=== PATIENT | female | born 1955 | race Caucasian/White ===

== ENCOUNTER → 2019-09-01 | Outpatient (CLI) | payer OTHER ==
[~2019-09-01] MED LIST: ALPR.5 PO; ATOR20 PO; Ativan1 MG SL; BACL10 PO; BUPR150ER PO; CEPH500 PO; CODACE30 PO; CYCL10 PO; IBUP600 PO; LOPE2C PO; LOSA25 PO; LOSA50 PO; LOSARTAN POTAS100 MG PO; NAPR500 PO; NITR.4SL SL; PROM25 PO; SULI150 PO; Zofran Odt8 MG SL; Zofran8 MG PO
[2019-09-01 19:22] LABS: BASOPHILS PERCENT AUTO 1 % (0-2); EOSINOPHILS ABSOLUTE AUTO 0.05 K/mm3 (0.00-0.68); EOSINOPHILS PERCENT AUTO 1 % (0-6); Hematocrit 45.8 % (33.0-51.0); Hemoglobin 15.2 g/dL (11.5-16.0); IMMATURE GRAN ABSOLUTE AUTO 0.03 K/mm3 (0.00-0.10); IMMATURE GRAN PERCENT AUTO 0 % (0-1); LYMPHOCYTES ABSOLUTE AUTO 2.52 K/mm3 (0.84-5.20); LYMPHOCYTES PERCENT AUTO 29 % (21-46); MONOCYTES ABSOLUTE AUTO 0.61 K/mm3 (0.16-1.47); MONOCYTES PERCENT AUTO 7 % (4-13); Mean Corpuscular HGB 30.4 pg (26.0-34.0); Mean Corpuscular HGB Conc 33.2 g/dL (31.5-36.5); Mean Corpuscular Volume 92 fL (80-100); Mean Platelet Volume 11.3 fL (9.1-12.4); NEUTROPHILS ABSOLUTE AUTO 5.48 K/mm3 (1.96-9.15); NEUTROPHILS PERCENT AUTO 62 % (41-73); Platelet Count 275 K/mm3 (150-400); RDW Coefficient Variation 11.6 % (11.7-14.2); RDW Standard Deviation 39.3 fL (35.1-46.3); White Blood Cell Count 8.79 K/mm3 (4.00-11.30)
[2019-09-01 20:00] LABS: Alanine Aminotransfer (ALT/SGP 22 U/L (12-78); Albumin, Blood 3.7 g/dL (3.4-5.0); Alk Phos 109 U/L (50-136); Anion Gap 5 mmol/L (6-16); Aspartate Aminotrans (AST/SGOT 16 U/L (12-37); Bilirubin, Total 0.2 mg/dL (0.1-1.0); Blood Urea Nitrogen 11 mg/dL (8-24); Bun/Creatinine Ratio 16.4 (12.0-20.0); CHOL/HDL RATIO 6.9; CO2, Blood 26 mmol/L (21-32); Calcium, Blood 9.2 mg/dL (8.5-10.1); Chloride, Blood 104 mmol/L (98-108); Cholesterol 262 mg/dL (50-200); Creatinine, Blood 0.67 mg/dL (0.40-1.00); Globulin, Blood 3.7 g/dL (2.2-4.0); Glomerular Filtration Rate >60 (60-); Glucose, Blood 104 mg/dL (70-99); HDL Cholesterol 38 mg/dL (>39); LDL/HDL RATIO 4.1; Low Density Lipoprotein Chol 154 mg/dL (0-110); Potassium, Blood 3.8 mmol/L (3.5-5.5); Sodium, Blood 135 mmol/L (136-145); Total Protein, Blood 7.4 g/dL (6.4-8.2); Triglycerides 348 mg/dL (30-160); Very Low Density Lipoprot Chol 69 mg/dL (6-32)
== END | disposition home or self-care (01) ==
LOC: LAB 16:54 → LAB SHORT 16:54 → LAB FUT 07-13 11:05 → EDSTATUS 07-13 11:05
PROVIDERS: Internal Medicine
DX: E78.2 Mixed hyperlipidemia (principal); I10 Essential (primary) hypertension
CPT/HCPCS: 80053; 80061; 84443; 85025

== ENCOUNTER 2020-07-11 09:44 | Emergency (ER) | payer OTHER ==
[~2020-07-11] VITALS: Ht 152.4 cm; Wt 60.3 kg
[2020-07-11] MEDS ORDERED: ATOR20 PO (10:02)
[2020-07-11 10:35] LABS: BASOPHILS ABSOLUTE AUTO 0.07 K/mm3 (0.00-0.23); BASOPHILS PERCENT AUTO 1 % (0-2); EOSINOPHILS ABSOLUTE AUTO 0.05 K/mm3 (0.00-0.68); EOSINOPHILS PERCENT AUTO 1 % (0-6); Hematocrit 45.4 % (33.0-51.0); Hemoglobin 15.5 g/dL (11.5-16.0); IMMATURE GRAN ABSOLUTE AUTO 0.03 K/mm3 (0.00-0.10); IMMATURE GRAN PERCENT AUTO 0 % (0-1); LYMPHOCYTES ABSOLUTE AUTO 1.41 K/mm3 (0.84-5.20); LYMPHOCYTES PERCENT AUTO 16 % (21-46); MONOCYTES ABSOLUTE AUTO 0.36 K/mm3 (0.16-1.47); MONOCYTES PERCENT AUTO 4 % (4-13); Mean Corpuscular HGB 31.1 pg (26.0-34.0); Mean Corpuscular HGB Conc 34.1 g/dL (31.5-36.5); Mean Corpuscular Volume 91 fL (80-100); NEUTROPHILS ABSOLUTE AUTO 6.87 K/mm3 (1.96-9.15); NEUTROPHILS PERCENT AUTO 78 % (41-73); Platelet Count 325 K/mm3 (150-400); RDW Coefficient Variation 11.7 % (11.7-14.2); RDW Standard Deviation 39.5 fL (35.1-46.3); Red Blood Cell Count 4.98 M/mm3 (3.80-5.20); White Blood Cell Count 8.79 K/mm3 (4.00-11.30)
[2020-07-11 10:48] LABS: Alanine Aminotransfer (ALT/SGP 20 U/L (12-78); Albumin, Blood 3.7 g/dL (3.4-5.0); Alk Phos 108 U/L (50-136); Anion Gap 9 mmol/L (6-16); Aspartate Aminotrans (AST/SGOT 14 U/L (12-37); Bilirubin, Total 0.3 mg/dL (0.1-1.0); Blood Urea Nitrogen 14 mg/dL (8-24); Bun/Creatinine Ratio 21.8 (12.0-20.0); CO2, Blood 24 mmol/L (21-32); Calcium, Blood 8.5 mg/dL (8.5-10.1); Chloride, Blood 109 mmol/L (98-108); Creatinine, Blood 0.64 mg/dL (0.40-1.00); Globulin, Blood 3.8 g/dL (2.2-4.0); Glomerular Filtration Rate >60 (60-); Glucose, Blood 100 mg/dL (70-99); Potassium, Blood 4.1 mmol/L (3.5-5.5); Sodium, Blood 142 mmol/L (136-145); Total Protein, Blood 7.5 g/dL (6.4-8.2)
[2020-07-11 11:35] LABS: Influenza A, PCR NEGATIVE (NEGATIVE); Influenza B, PCR NEGATIVE (NEGATIVE); Resp Syncytial Virus, PCR NEGATIVE (NEGATIVE); SARS-Cov-2 (COVID-19) PCR, MMC NEGATIVE (NEGATIVE)
[2020-07-11] MEDS ORDERED: PROM25 PO (17:59)
[2020-07-11] MEDS ORDERED: Bentyl20 MG PO (18:17)
== END 2020-07-11 11:20 | disposition left against medical advice (07) ==
LOC: ER 09:44
PROVIDERS: Emergency Medicine
DX: R10.9 Unspecified abdominal pain (principal); R11.2 Nausea with vomiting, unspecified; Z20.822 Contact with and (suspected) exposure to COVID-19
CPT/HCPCS: 0241U; 80053; 83690; 85025; 99284; J7120

== ENCOUNTER 2020-07-11 13:15 | Emergency (ER) | payer OTHER ==
[~2020-07-11] VITALS: Ht 152.4 cm; Wt 60.3 kg
[2020-07-11 14:49] LABS: Source, Urine Clean Catch
[2020-07-11 14:54] LABS: Appearance, Urine Clear (Clear); Bilirubin, Urine Neg (Neg); Blood, Urine 1+ (Neg); Color, Urine Yellow (P-Yellow); Glucose Qualitative, Urine Neg (Neg); Ketones, Urine Neg (Neg); Leukocyte Esterase, Urine Neg (Neg); Nitrite, Urine Neg (Neg); Protein, Urine Neg (Neg); Specific Gravity, Urine 1.015 (1.003-1.022); Urobilinogen, Urine NORM (Normal)
[2020-07-11 14:56] LABS: BASOPHILS ABSOLUTE AUTO 0.05 K/mm3 (0.00-0.23); BASOPHILS PERCENT AUTO 1 % (0-2); EOSINOPHILS ABSOLUTE AUTO 0.01 K/mm3 (0.00-0.68); EOSINOPHILS PERCENT AUTO 0 % (0-6); Hematocrit 45.6 % (33.0-51.0); IMMATURE GRAN ABSOLUTE AUTO 0.06 K/mm3 (0.00-0.10); IMMATURE GRAN PERCENT AUTO 1 % (0-1); LYMPHOCYTES ABSOLUTE AUTO 1.48 K/mm3 (0.84-5.20); LYMPHOCYTES PERCENT AUTO 14 % (21-46); MONOCYTES ABSOLUTE AUTO 0.32 K/mm3 (0.16-1.47); MONOCYTES PERCENT AUTO 3 % (4-13); Mean Corpuscular HGB 31.1 pg (26.0-34.0); Mean Corpuscular HGB Conc 35.1 g/dL (31.5-36.5); Mean Corpuscular Volume 89 fL (80-100); NEUTROPHILS PERCENT AUTO 82 % (41-73); Platelet Count 338 K/mm3 (150-400); RDW Coefficient Variation 11.7 % (11.7-14.2); Red Blood Cell Count 5.15 M/mm3 (3.80-5.20); White Blood Cell Count 10.92 K/mm3 (4.00-11.30)
[2020-07-11 15:07] LABS: Red Blood Cells, Urine 0-2 /hpf (0-2); White Blood Cells, Urine 0-2 /hpf (0-5)
[2020-07-11 15:08] LABS: Bacteria Few /hpf; Squamous Epithelial Cells Rare /hpf (Few)
[2020-07-11 15:15] LABS: Troponin I <0.015 ng/mL (0.000-0.040)
[2020-07-11 15:16] LABS: Alanine Aminotransfer (ALT/SGP 20 U/L (12-78); Albumin, Blood 3.9 g/dL (3.4-5.0); Alk Phos 111 U/L (50-136); Anion Gap 9 mmol/L (6-16); Aspartate Aminotrans (AST/SGOT 15 U/L (12-37); Bilirubin, Total 0.4 mg/dL (0.1-1.0); Blood Urea Nitrogen 11 mg/dL (8-24); Bun/Creatinine Ratio 17.6 (12.0-20.0); CO2, Blood 25 mmol/L (21-32); Calcium, Blood 9.1 mg/dL (8.5-10.1); Chloride, Blood 109 mmol/L (98-108); Creatinine, Blood 0.63 mg/dL (0.40-1.00); Globulin, Blood 4.1 g/dL (2.2-4.0); Glomerular Filtration Rate >60 (60-); Glucose, Blood 111 mg/dL (70-99); Potassium, Blood 3.8 mmol/L (3.5-5.5); Sodium, Blood 143 mmol/L (136-145)
[2020-07-11] MEDS ORDERED: PROM25 PO (17:59)
[2020-07-11] MEDS ORDERED: Bentyl20 MG PO (18:17)
== END 2020-07-11 19:00 | disposition home or self-care (01) ==
LOC: ER 13:15
PROVIDERS: Emergency Medicine
DX: K52.9 Noninfective gastroenteritis and colitis, unspecified (principal); I10 Essential (primary) hypertension; E78.5 Hyperlipidemia, unspecified; Z88.5 Allergy status to narcotic agent; Z88.8 Allergy status to other drugs, medicaments and biological substances; Z79.899 Other long term (current) drug therapy; Z87.891 Personal history of nicotine dependence
CPT/HCPCS: 36415; 74177; 80053; 81001; 83690; 83735; 84484; 85025; 93005; 93010; 96372-59; 96374-59; 96375; 99284-25; J0500; J2550; J2765; J7120; Q9967

== ENCOUNTER 2020-07-13 07:23 | Observation (INO) | payer OTHER ==
[~2020-07-13] VITALS: Ht 152.4 cm; Wt 58.6 kg
[~2020-07-13 07:23] MED LIST changes: +Bentyl20 MG PO
[2020-07-13] MEDS ORDERED: CIPR500 PO (07:46)
[2020-07-13] MEDS ORDERED: METR500 PO (07:46)
[2020-07-13 08:21] LABS: Source, Urine Clean Catch
[2020-07-13 08:37] LABS: BASOPHILS ABSOLUTE AUTO 0.04 K/mm3 (0.00-0.23); BASOPHILS PERCENT AUTO 0 % (0-2); EOSINOPHILS PERCENT AUTO 0 % (0-6); Hematocrit 45.5 % (33.0-51.0); Hemoglobin 16.5 g/dL (11.5-16.0); IMMATURE GRAN ABSOLUTE AUTO 0.08 K/mm3 (0.00-0.10); IMMATURE GRAN PERCENT AUTO 1 % (0-1); LYMPHOCYTES ABSOLUTE AUTO 1.54 K/mm3 (0.84-5.20); LYMPHOCYTES PERCENT AUTO 10 % (21-46); MONOCYTES ABSOLUTE AUTO 0.51 K/mm3 (0.16-1.47); MONOCYTES PERCENT AUTO 3 % (4-13); Mean Corpuscular HGB 31.1 pg (26.0-34.0); Mean Corpuscular HGB Conc 36.3 g/dL (31.5-36.5); Mean Corpuscular Volume 86 fL (80-100); Mean Platelet Volume 10.5 fL (9.1-12.4); NEUTROPHILS ABSOLUTE AUTO 12.75 K/mm3 (1.96-9.15); NEUTROPHILS PERCENT AUTO 86 % (41-73); Platelet Count 332 K/mm3 (150-400); RDW Coefficient Variation 11.6 % (11.7-14.2); RDW Standard Deviation 36.4 fL (35.1-46.3); White Blood Cell Count 14.92 K/mm3 (4.00-11.30)
[2020-07-13 08:40] LABS: Bilirubin, Urine Neg (Neg); Blood, Urine 3+ (Neg); Glucose Qualitative, Urine Neg (Neg); Ketones, Urine 2+ (Neg); Leukocyte Esterase, Urine Neg (Neg); Nitrite, Urine Neg (Neg); Protein, Urine 1+ (Neg); Specific Gravity, Urine 1.005 (1.003-1.022); Urobilinogen, Urine NORM (Normal)
[2020-07-13 09:00] LABS: Alanine Aminotransfer (ALT/SGP 25 U/L (12-78); Albumin, Blood 3.9 g/dL (3.4-5.0); Alk Phos 101 U/L (50-136); Anion Gap 11 mmol/L (6-16); Aspartate Aminotrans (AST/SGOT 33 U/L (12-37); Bilirubin, Total 0.8 mg/dL (0.1-1.0); Blood Urea Nitrogen 14 mg/dL (8-24); Bun/Creatinine Ratio 19.6 (12.0-20.0); CO2, Blood 24 mmol/L (21-32); Calcium, Blood 8.9 mg/dL (8.5-10.1); Chloride, Blood 91 mmol/L (98-108); Creatinine, Blood 0.71 mg/dL (0.40-1.00); Glomerular Filtration Rate >60 (60-); Glucose, Blood 134 mg/dL (70-99); Potassium, Blood 3.3 mmol/L (3.5-5.5); Total Protein, Blood 7.9 g/dL (6.4-8.2); Troponin I <0.015 ng/mL (0.000-0.040)
[2020-07-13 09:02] LABS: Appearance, Urine Clear (Clear); Color, Urine Yellow (P-Yellow)
[2020-07-13 09:03] LABS: Bacteria Few /hpf; Squamous Epithelial Cells Rare /hpf (Few); White Blood Cells, Urine 0-2 /hpf (0-5)
[2020-07-13 09:13] LABS: Sodium, Blood 126 mmol/L (136-145)
--- NOTE | 2020-07-13 19:23 | NUR ---
SHIFT SUMMARY: ASSUMED CARE OF PATIENT UPON HER ARRIVAL FROM ED AT 1602. OCCASIONAL DRY HEAVES BUT NO EMESIS NOTED. DENIED PAIN. HAS BEEN SLEEPING SINCE ARRIVAL, DID NOT PARTICIPATE IN ADMISSION HISTORY. IVF INFUSING. HAS NOT USED BR, STOOL SPECIMEN NOT OBTAINED YET.
--- NOTE | 2020-07-13 22:31 | NUR ---
NAUSEA/VOMITING PATIENT CONTINUES TO HAVE NAUSEA AND VOMITING EVEN AFTER ADMINISTERING ZOFRAN AND REGLAN. RECEIVED T.O. FROM [facility] FOR COMPAZINE IV 5MG Q6H PRN. EMAR UPDATED.
[2020-07-14 05:21] LABS: BASOPHILS ABSOLUTE AUTO 0.03 K/mm3 (0.00-0.23); BASOPHILS PERCENT AUTO 0 % (0-2); EOSINOPHILS PERCENT AUTO 0 % (0-6); Hematocrit 43.1 % (33.0-51.0); IMMATURE GRAN ABSOLUTE AUTO 0.04 K/mm3 (0.00-0.10); IMMATURE GRAN PERCENT AUTO 0 % (0-1); LYMPHOCYTES ABSOLUTE AUTO 2.95 K/mm3 (0.84-5.20); LYMPHOCYTES PERCENT AUTO 27 % (21-46); MONOCYTES ABSOLUTE AUTO 1.01 K/mm3 (0.16-1.47); MONOCYTES PERCENT AUTO 9 % (4-13); Mean Corpuscular HGB 30.9 pg (26.0-34.0); Mean Corpuscular HGB Conc 34.8 g/dL (31.5-36.5); Mean Corpuscular Volume 89 fL (80-100); Mean Platelet Volume 9.8 fL (9.1-12.4); NEUTROPHILS ABSOLUTE AUTO 6.98 K/mm3 (1.96-9.15); NEUTROPHILS PERCENT AUTO 63 % (41-73); Platelet Count 270 K/mm3 (150-400); RDW Coefficient Variation 11.8 % (11.7-14.2); RDW Standard Deviation 38.2 fL (35.1-46.3); Red Blood Cell Count 4.86 M/mm3 (3.80-5.20); White Blood Cell Count 11.01 K/mm3 (4.00-11.30)
[2020-07-14 05:49] LABS: Alanine Aminotransfer (ALT/SGP 29 U/L (12-78); Albumin, Blood 3.3 g/dL (3.4-5.0); Albumin/Globulin Ratio 0.9 (0.8-1.8); Alk Phos 83 U/L (50-136); Anion Gap 8 mmol/L (6-16); Aspartate Aminotrans (AST/SGOT 27 U/L (12-37); Bilirubin, Total 0.6 mg/dL (0.1-1.0); Blood Urea Nitrogen 11 mg/dL (8-24); Bun/Creatinine Ratio 14.2 (12.0-20.0); CO2, Blood 22 mmol/L (21-32); Calcium, Blood 8.5 mg/dL (8.5-10.1); Chloride, Blood 111 mmol/L (98-108); Creatinine, Blood 0.77 mg/dL (0.40-1.00); Globulin, Blood 3.5 g/dL (2.2-4.0); Glomerular Filtration Rate >60 (60-); Glucose, Blood 94 mg/dL (70-99); Potassium, Blood 3.7 mmol/L (3.5-5.5); Total Protein, Blood 6.8 g/dL (6.4-8.2)
[2020-07-14 06:02] LABS: Sodium, Blood 141 mmol/L (136-145)
--- NOTE | 2020-07-14 06:04 | NUR ---
Shift Summary A/Ox4, pleasant and cooperative. Independent in room. Patient had 2 liquidy/soft incontinent stools this shift. Patient reports that she has never been incontinent. Stool sample sent to lab. Medicated x 2 for nausea, patient reported none was working so this RN called and received additional med for nausea, however, by the time med was ordered and approved by pharmacy, patient was already asleep. Also reports LLQ abdominal pain with palpation. NS+KCl @ 125. Had minimal clear emesis. No other changes, WCTM.
[2020-07-14 07:31] LABS: Adenovirus F 40/41 Not Detected (NOT DETECT); Astrovirus Not Detected (NOT DETECT); Campylobacter Sp Not Detected (NOT DETECT); Cryptosporidium Not Detected (NOT DETECT); Cyclospora Cayetanensis Not Detected (NOT DETECT); E. Coli O157 Not Detected (NOT DETECT); Entamoeba Histolytica Not Detected (NOT DETECT); Enteroaggregative E. coli-EAEC Not Detected (NOT DETECT); Enteropathogenic E. coli-EPEC Not Detected (NOT DETECT); Enterotoxigenic E. coli-ETEC Not Detected (NOT DETECT); Giardia Lamblia Not Detected (NOT DETECT); Norovirus GI/GII Not Detected (NOT DETECT); Plesiomonas Shigelloides Not Detected (NOT DETECT); Salmonella Sp Not Detected (NOT DETECT); Shiga Toxin-prod E. coli-STEC Not Detected (NOT DETECT); Shigella/Enteroin E. coli-EIEC Not Detected (NOT DETECT); Vibrio Cholerae Not Detected (NOT DETECT); Vibrio Sp Not Detected (NOT DETECT); Yersinia Enterocolitica Not Detected (NOT DETECT)
[2020-07-14 07:32] LABS: Rotavirus A Not Detected (NOT DETECT); Sapovirus Not Detected (NOT DETECT)
[2020-07-14] MEDS ORDERED: METO5A PO (11:22)
--- NOTE | 2020-07-14 12:38 | NUR ---
PATIENT DISCHARGED TO HOME, SPOUSE IS PICKING HER UP. DENIED PAIN, NAUSEA. IV SALINE LOCKS REMOVED WITHOUT INCIDENT. SHE VERBALIZED UNDERSTANDING OF D/C INSTRUCTIONS. HAS APPOINTMENT WITH PCP ON WEDNESDAY. LEFT UNIT, AMBULATORY, AT 1222.
== END 2020-07-14 12:27 | disposition home or self-care (01) ==
LOC: ER 07:23 → ERHOLD 07:24 → MEDS 16:08 → ENPENDDIS 07-14 10:45 → MEDS 07-14 12:27
PROVIDERS: Emergency Medicine; ADMIT Internal Medicine
DX: R11.2 Nausea with vomiting, unspecified (principal); K52.9 Noninfective gastroenteritis and colitis, unspecified; E87.1 Hypo-osmolality and hyponatremia; E87.6 Hypokalemia; I10 Essential (primary) hypertension; D72.829 Elevated white blood cell count, unspecified; R31.9 Hematuria, unspecified; E78.5 Hyperlipidemia, unspecified; K21.9 Gastro-esophageal reflux disease without esophagitis; Z88.5 Allergy status to narcotic agent; Z88.8 Allergy status to other drugs, medicaments and biological substances
CPT/HCPCS: 0097U; 36415; 80053; 81001; 83690; 84484; 85025; 93005; 93010; J0696; J1200; J1630; J1650; J2405; J2550; J2765; J3480; J7030

== ENCOUNTER 2021-01-09 07:08 | Day surgery (SDC) | payer OTHER ==
[~2021-01-09] VITALS: Ht 152.4 cm; Wt 59.9 kg
[~2021-01-09 07:08] MED LIST changes: +BACLOFEN5 M1 PO; +BUPR100 PO; +CIPR500 PO; +DICY20 PO; +Lovastatin20 MG PO; +METO5A PO; +METR500 PO; +PROM25
--- NOTE | 2021-01-09 11:24 | NUR ---
Patient up to Ambulate independently. Gait steady. Marlene Paws warming gown applied. Discharge instructions reviewed with patient. Patient verbalizes understanding. Copy given to patient to take home. History, Chart, Medications and Allergies reviewed before start of procedure.Patient States Post-Procedure ride home has been arranged. Discharged via wheelchair to private car for ride home.
== END 2021-01-09 11:36 | disposition home or self-care (01) ==
LOC: ORSCMMR 07:08 → ORD 08:45 → ORSCMMR 11:36
PROVIDERS: Surgery
PROC: 0HBU0ZX Excision of Left Breast, Open Approach, Diagnostic (ICD-10-PCS; principal; 2021-01-09 08:45)
DX: N64.52 Nipple discharge (principal); D24.2 Benign neoplasm of left breast; Z87.891 Personal history of nicotine dependence; E78.5 Hyperlipidemia, unspecified; Z79.899 Other long term (current) drug therapy
CPT/HCPCS: 88305; A9270; J0690; J1100; J1885; J2250; J2370; J2405; J2704; J3010; J7120

== ENCOUNTER 2021-08-12 08:26 | Day surgery (SDC) | payer OTHER ==
[~2021-08-12] VITALS: Ht 152.4 cm; Wt 64.0 kg
[2021-08-12] MEDS ORDERED: ATOR40TA PO (09:46)
[2021-08-12] MEDS ORDERED: LOSA50 PO (09:48)
[2021-08-12] MEDS ORDERED: PROM25 PO (09:48)
[2021-08-12] MEDS ORDERED: ASPI81CH PO (09:48)
[2021-08-12] MEDS ORDERED: QUET100 PO (09:49)
--- NOTE | 2021-08-12 12:03 | NUR ---
[facility]IST[facility] RETURNED FROM THE CATHLAB. SBAR RECEIVED AND PATIENT MONITOR APPLIED. PATEITN AWAKE AND CALL LIGHT IN REACH. VVS. LUNCH TRAY SET UP AND HOB UP 15 DEGREES. RYDER GROIN SITES CDI WITH ANGIOSEAL DRESSINGS IN PLACE. DOPPLER PULSES PT DP RIGHT AND DP LEFT NO PT FOUND.
--- NOTE | 2021-08-12 12:08 | NUR ---
DR. VIDAL BRIEFLY AT THE BEDSIDE.
[2021-08-12] MEDS ORDERED: CLOP75 PO (12:38)
--- NOTE | 2021-08-12 14:07 | NUR ---
PATEINT UP OOB, OFF THE MONITOR AND PIV REMOVED. PRESSURE DRESSING REMOVED. CATH TIP INTACT. BILATERAL GROIN SITE INTACT AND DRESSING CDI. REVIEWED DISCHARGE INSTRUCTIONS WITH THE DAUGHTER AND PATIENT. PLAVIX CALLED INTO [facility] AND PATIENT WILL SIZING SPONGER THIS AFTERNOON. DISCHARGED HOME AMBULATORY WITH DAUGHTER ACCOUNT SOLUTIONS ANALYST.
== END 2021-08-12 14:30 | disposition home or self-care (01) ==
LOC: MHTC 08:26
DX: I70.212 Atherosclerosis of native arteries of extremities with intermittent claudication, left leg (principal); I10 Essential (primary) hypertension; E78.5 Hyperlipidemia, unspecified; F17.210 Nicotine dependence, cigarettes, uncomplicated; Z88.5 Allergy status to narcotic agent; Z88.8 Allergy status to other drugs, medicaments and biological substances
CPT/HCPCS: 37220; 37221; 37223; 75625; 75716; 76937; 99152; 99153; C1725; C1760; C1769; C1876; C1887; C1894; J1644; J2250; J3010; J7030; J7040; Q9967

== ENCOUNTER 2021-08-23 14:05 | Emergency (ER) | payer OTHER ==
[~2021-08-23] VITALS: Ht 152.4 cm; Wt 62.6 kg
[~2021-08-23 14:05] MED LIST changes: +ASPI81CH PO; +ATOR40TA PO; +CLOP75 PO; +QUET100 PO
== END 2021-08-23 14:25 | disposition home or self-care (01) ==
LOC: ER 14:05
DX: S70.12XA Contusion of left thigh, initial encounter (principal); I10 Essential (primary) hypertension; E78.5 Hyperlipidemia, unspecified; Z87.891 Personal history of nicotine dependence; Z88.5 Allergy status to narcotic agent; Z88.8 Allergy status to other drugs, medicaments and biological substances; Z79.82 Long term (current) use of aspirin; Z79.899 Other long term (current) drug therapy
CPT/HCPCS: 99282

== ENCOUNTER 2022-08-18 17:29 | Emergency (ER) | payer OTHER ==
[~2022-08-18] VITALS: Ht 154.9 cm; Wt 68.0 kg
[~2022-08-18 17:29] MED LIST changes: +DICLOFENAC SOD100 GM; +Nicoderm Cq1 EAC1 TOP; +Prozac20 MG PO; +TAMS.4ER PO
[2022-08-18 18:11] LABS: BASOPHILS ABSOLUTE AUTO 0.05 K/mm3 (0.00-0.23); BASOPHILS PERCENT AUTO 0 % (0-2); EOSINOPHILS PERCENT AUTO 0 % (0-6); Hematocrit 42.7 % (33.0-51.0); Hemoglobin 14.8 g/dL (11.5-16.0); IMMATURE GRAN ABSOLUTE AUTO 0.07 K/mm3 (0.00-0.10); IMMATURE GRAN PERCENT AUTO 0 % (0-1); LYMPHOCYTES ABSOLUTE AUTO 1.44 K/mm3 (0.84-5.20); LYMPHOCYTES PERCENT AUTO 9 % (21-46); MONOCYTES ABSOLUTE AUTO 0.49 K/mm3 (0.16-1.47); MONOCYTES PERCENT AUTO 3 % (4-13); Mean Corpuscular HGB 31.1 pg (26.0-34.0); Mean Corpuscular HGB Conc 34.7 g/dL (31.5-36.5); Mean Corpuscular Volume 90 fL (80-100); Mean Platelet Volume 10.4 fL (9.1-12.4); NEUTROPHILS ABSOLUTE AUTO 13.92 K/mm3 (1.96-9.15); NEUTROPHILS PERCENT AUTO 87 % (41-73); Platelet Count 325 K/mm3 (150-400); RDW Coefficient Variation 11.9 % (11.7-14.2); RDW Standard Deviation 39.1 fL (35.1-46.3); Red Blood Cell Count 4.76 M/mm3 (3.80-5.20); White Blood Cell Count 15.97 K/mm3 (4.00-11.30)
[2022-08-18 18:22] LABS: Albumin, Blood 3.8 g/dL (3.4-5.0); Bilirubin, Total 0.3 mg/dL (0.1-1.0); Bun/Creatinine Ratio 18.3 (12.0-20.0); Calcium, Blood 9.5 mg/dL (8.5-10.1); Creatinine, Blood 0.71 mg/dL (0.40-1.00); Potassium, Blood 4.1 mmol/L (3.5-5.5); Total Protein, Blood 7.8 g/dL (6.4-8.2)
[2022-08-18 19:20] VITALS: BP 170/92
== END 2022-08-18 19:49 | disposition home or self-care (01) ==
LOC: ER 17:29
PROVIDERS: Emergency Medicine
DX: R11.2 Nausea with vomiting, unspecified (principal); T41.45XA Adverse effect of unspecified anesthetic, initial encounter; I10 Essential (primary) hypertension; E78.5 Hyperlipidemia, unspecified; F32.A Depression, unspecified; Z88.6 Allergy status to analgesic agent; Z88.5 Allergy status to narcotic agent; Z88.8 Allergy status to other drugs, medicaments and biological substances; Z79.899 Other long term (current) drug therapy; Z79.82 Long term (current) use of aspirin
CPT/HCPCS: 80053; 83690; 84484; 85025; 93005; 93010; A9270; J1790; J7030

== ENCOUNTER 2022-08-19 16:19 | Observation (INO) | payer OTHER ==
[~2022-08-19] VITALS: Ht 152.4 cm; Wt 63.5 kg
[2022-08-19 16:56] LABS: BASOPHILS ABSOLUTE AUTO 0.03 K/mm3 (0.00-0.23); BASOPHILS PERCENT AUTO 0 % (0-2); EOSINOPHILS ABSOLUTE AUTO 0.01 K/mm3 (0.00-0.68); EOSINOPHILS PERCENT AUTO 0 % (0-6); Hematocrit 45.9 % (33.0-51.0); Hemoglobin 16.1 g/dL (11.5-16.0); IMMATURE GRAN ABSOLUTE AUTO 0.06 K/mm3 (0.00-0.10); IMMATURE GRAN PERCENT AUTO 0 % (0-1); LYMPHOCYTES ABSOLUTE AUTO 1.29 K/mm3 (0.84-5.20); LYMPHOCYTES PERCENT AUTO 8 % (21-46); MONOCYTES ABSOLUTE AUTO 0.97 K/mm3 (0.16-1.47); MONOCYTES PERCENT AUTO 6 % (4-13); Mean Corpuscular HGB 31.3 pg (26.0-34.0); Mean Corpuscular HGB Conc 35.1 g/dL (31.5-36.5); Mean Corpuscular Volume 89 fL (80-100); Mean Platelet Volume 10.7 fL (9.1-12.4); NEUTROPHILS ABSOLUTE AUTO 14.21 K/mm3 (1.96-9.15); NEUTROPHILS PERCENT AUTO 86 % (41-73); Platelet Count 324 K/mm3 (150-400); RDW Standard Deviation 39.7 fL (35.1-46.3); Red Blood Cell Count 5.14 M/mm3 (3.80-5.20); White Blood Cell Count 16.57 K/mm3 (4.00-11.30)
[2022-08-19 17:08] LABS: Albumin, Blood 4.4 g/dL (3.4-5.0); Albumin/Globulin Ratio 0.9 (0.8-1.8); Bilirubin, Total 0.6 mg/dL (0.1-1.0); Bun/Creatinine Ratio 18.8 (12.0-20.0); Calcium, Blood 9.8 mg/dL (8.5-10.1); Creatinine, Blood 0.8 mg/dL (0.40-1.00); Globulin, Blood 4.7 g/dL (2.2-4.0); Potassium, Blood 4.3 mmol/L (3.5-5.5); Total Protein, Blood 9.1 g/dL (6.4-8.2)
[2022-08-19 19:24] LABS: Source, Urine Clean Catch
[2022-08-19 19:29] LABS: Appearance, Urine Clear (Clear); Bilirubin, Urine Neg (Neg); Blood, Urine 4+ (Neg); Color, Urine Yellow (P-Yellow); Glucose Qualitative, Urine Neg (Neg); Ketones, Urine 1+ (Neg); Leukocyte Esterase, Urine Neg (Neg); Nitrite, Urine Neg (Neg); Protein, Urine 3+ (Neg); Urobilinogen, Urine NORM (Normal)
[2022-08-19 19:47] LABS: Squamous Epithelial Cells Few /hpf (Few)
[2022-08-19 19:49] LABS: Bacteria Few /hpf; Hyaline Casts 0-2 /lpf (0-2)
[2022-08-19 20:30] VITALS: BP 193/87
[2022-08-19 22:57] VITALS: BP 195/88
--- NOTE | 2022-08-19 23:12 | NUR ---
NOTIFICATION NOTIFIED RESIDENT VARGAS REGARDING HIGH BLOOD PRESSURE AFTER TREATMENT WITH LABETOLOL.
[2022-08-19 23:59] VITALS: BP 154/64
[2022-08-20] VITALS (7 sets, daily range): BP systolic 123–180; BP diastolic 71–102
[2022-08-20 01:33] LABS: Hematocrit 42.7 % (33.0-51.0); Hemoglobin 15.4 g/dL (11.5-16.0); Mean Corpuscular HGB 31.6 pg (26.0-34.0); Mean Corpuscular HGB Conc 36.1 g/dL (31.5-36.5); Mean Corpuscular Volume 88 fL (80-100); Mean Platelet Volume 10.1 fL (9.1-12.4); Platelet Count 342 K/mm3 (150-400); RDW Standard Deviation 38.5 fL (35.1-46.3); Red Blood Cell Count 4.87 M/mm3 (3.80-5.20); White Blood Cell Count 16.94 K/mm3 (4.00-11.30)
[2022-08-20 02:11] LABS: Bun/Creatinine Ratio 23.3 (12.0-20.0); Calcium, Blood 9.3 mg/dL (8.5-10.1); Creatinine, Blood 0.6 mg/dL (0.40-1.00); Potassium, Blood 3.7 mmol/L (3.5-5.5)
--- NOTE | 2022-08-20 06:41 | NUR ---
SHIFT SUMMANRY PATIENT WITH NAUSEA AND DRY HEAVING THROUGHOUT SHIFT. DENIES CHEST PAIN. TROPONINS ELEVATED. DR VARGAS (RESIDENT) AWARE. HYPERTENSIVE, TREATED PER MAY. UP INDEPENDENTLY. ADEQUATE OUTPUT
[2022-08-20 07:35] LABS: CHOL/HDL RATIO 4.1; Cholesterol 277 mg/dL (50-200); HDL Cholesterol 68 mg/dL (>39); LDL/HDL RATIO 2.6; Low Density Lipoprotein Chol 176 mg/dL (0-110); Triglycerides 164 mg/dL (30-160); Very Low Density Lipoprot Chol 32 mg/dL (6-32)
--- NOTE | 2022-08-20 08:14 | NUR ---
Pt was obviously anxious and nauseated upon my initial encounter. Pacing the floor, stated it helped with her nausea. Unable to lie down, she said; however she was able to lie down long enough to place a Powerglide for IV access. Given PO phenergan at this time for her dry heaving which she has had at least 3-4 times in the last hour. IV fluids infusing at 150 cc/hour at this time.
[2022-08-20 08:43] LABS: Anti-Xa UFH, PHA Monitoring <0.10 IU/mL; International Normalized Ratio 1.02; Prothrombin Time Results 10.7 Sec (9.7-11.5)
--- NOTE | 2022-08-20 08:58 | NUR ---
Pt is still very restless, states that she just wishes that she could sleep but the nausea is bothering her too much.
--- NOTE | 2022-08-20 09:14 | NUR ---
Dr. Moyer rounded; verbal orders to d/c the heparin received. It was not yet started.
--- NOTE | 2022-08-20 09:19 | NUR ---
Pt is too nauseated to lie still for the Echocardiogram at this time. Will attempt again in about an hour.
--- NOTE | 2022-08-20 10:14 | NUR ---
Medicated for elevated blood pressure systolic 180 mmHg. Pt continues to have nausea, without emesis.
--- NOTE | 2022-08-20 10:30 | NUR ---
Pt taken to imaging for first portion of stress test.
--- NOTE | 2022-08-20 11:17 | NUR ---
Pt resting quietly now; states that her nausea is a little bit better. Blood pressure improved after hydralazine given.
--- NOTE | 2022-08-20 13:43 | NUR ---
LEXISCAN portion of stress test in progress.
--- NOTE | 2022-08-20 13:56 | NUR ---
Pt states that she is feeling much better after waking up from her nap. Smiling, pleasantly conversant and cheerful.
--- NOTE | 2022-08-20 14:59 | NUR ---
Pt to imaging a few minutes ago for last portion of stress test.
--- NOTE | 2022-08-20 16:19 | NUR ---
MEDICATED with prn labetolol for systolic blood pressure 173 mmHg.
--- NOTE | 2022-08-20 17:46 | NUR ---
Many foods are tasting bad to the patient. She couldn't tolerate pepsi, tea, apple juice, nor any of the full liquid trays today. She is drinking water and seltzer water, and ate a popsicle.
--- NOTE | 2022-08-20 21:16 | NUR ---
UPDATE [facility] AT 1900; GAVE REPORT TO SHAE DE GUZMAN AT 2100.
[2022-08-21 00:45] VITALS: BP 109/60
[2022-08-21 04:00] VITALS: BP 114/62
[2022-08-21 04:23] LABS: Mean Corpuscular HGB 31.3 pg (26.0-34.0); Mean Corpuscular HGB Conc 34.3 g/dL (31.5-36.5); Mean Corpuscular Volume 91 fL (80-100); Mean Platelet Volume 10.2 fL (9.1-12.4); Platelet Count 266 K/mm3 (150-400); RDW Coefficient Variation 12.3 % (11.7-14.2); RDW Standard Deviation 41.1 fL (35.1-46.3); Red Blood Cell Count 3.84 M/mm3 (3.80-5.20); White Blood Cell Count 9.44 K/mm3 (4.00-11.30)
[2022-08-21 04:49] LABS: Bilirubin, Total 0.7 mg/dL (0.1-1.0); Bun/Creatinine Ratio 21.7 (12.0-20.0); Creatinine, Blood 0.92 mg/dL (0.40-1.00); Potassium, Blood 3.5 mmol/L (3.5-5.5)
[2022-08-21 04:50] LABS: Albumin/Globulin Ratio 1.1 (0.8-1.8); Globulin, Blood 2.7 g/dL (2.2-4.0)
[2022-08-21 04:51] LABS: Total Protein, Blood 5.7 g/dL (6.4-8.2)
--- NOTE | 2022-08-21 05:26 | NUR ---
SHIFT SUMMARY: PT REMAINS A&0X4. DENIED N/V T/O THE SHIFT. TOLERATED PO FLUIDS. INDEPENDENT TO AMBULATE AND USE THE BSC. URINE IS MAI AND PT REPORTS INCREASED PO INTAKE DURING THE NIGHT. LR CONTINUE TO INFUSE. DENIED CP, SOB, OR JAW/ARM PAIN T/O THE NIGHT. AMBULATED FREQUENTLY AND WALKED DOWN THE HALLWAY. RESTING AT THIS TIME WITH THE CALL LIGHT IN REACH AND BED IN LOWEST POSITION. WILL GIVE REPORT TO ONCOMING DAY TIME RN.
--- NOTE | 2022-08-21 07:15 | NUR ---
Report received from puja RN. The pt did NOT require any prn antihypertensives nor antiemetics last night.
[2022-08-21 07:27] VITALS: BP 115/67
[2022-08-21] MEDS ORDERED: Prozac20 MG PO (08:11)
--- NOTE | 2022-08-21 10:41 | NUR ---
Discharge medications and instructions were reviewed with the patient, and questions answered. Pt clarifies that she did not have promethazine as a home medication, so call to resident MD to ask if reglan needed to be continued on discharge. Instead, new order for omeprazole 20 mg daily received. This was called into the pt's pharmacy, [facility]. Her paperwork was updated to reflect this. She was taken out in a wheelchair by the PCT to waiting private vehicle, driven by pt's daughter, Karen.
--- NOTE | 2022-08-21 10:51 | NUR ---
"Spiritual Care Visit | Nurse referral Pt. is awake and jumps up and sits on her bed as she welcomes my visit. Pt. verbalizes the grief of the recent loss of her of 32 yrs. Listen with empathy and pastoral grief support. Pt. displays evidence of trust and engagement and responds comfortably to this senior pharmacy technician's visit. Consider matters of rick and belief. Rapport is established. Pt. displays evidence of being encouraged and a lightened mood. Prayed with Pt. Pt. verbalized gratitude for the spiritual care visit. Updated nurse Nida who is working on Pts. discharge."
== END 2022-08-21 10:40 | disposition home or self-care (01) ==
LOC: ER 16:19 → PCU 16:20
PROVIDERS: Emergency Medicine; Family Medicine Adult Medicine; Nurse Practitioner Acute Care; ADMIT Internal Medicine
DX: R07.9 Chest pain, unspecified (principal); R77.8 Other specified abnormalities of plasma proteins; R11.15 Cyclical vomiting syndrome unrelated to migraine; R10.9 Unspecified abdominal pain; F41.9 Anxiety disorder, unspecified; J44.9 Chronic obstructive pulmonary disease, unspecified; I10 Essential (primary) hypertension; E78.5 Hyperlipidemia, unspecified; G47.00 Insomnia, unspecified; D72.829 Elevated white blood cell count, unspecified; I73.9 Peripheral vascular disease, unspecified; Z88.5 Allergy status to narcotic agent
CPT/HCPCS: 36415; 71046; 78452; 80048; 80053; 80061; 81001; 83690; 84484; 85025; 85027; 85520; 85610; 85730; 93005; 93010; 93017; 93306; 96361; 96374; 96375; 96376; 99285-25; A9270; A9500; C1751; C9113; G0378; J0360; J1790; J2405; J2765; J2785; J7120

== ENCOUNTER → 2022-09-08 | Outpatient (CLI) | payer OTHER | END | disposition home or self-care (01) | LOC: LAB 16:55 → LAB SHORT 16:55 | DX: S80.01XA Contusion of right knee, initial encounter (principal); S80.02XA Contusion of left knee, initial encounter | CPT/HCPCS: 87070; 87075; 87077; 87186; 87205 ==

== ENCOUNTER → 2023-02-10 | Outpatient (CLI) | payer OTHER ==
[2023-02-10 17:21] LABS: Alanine Aminotransfer (ALT/SGP 27 U/L (12-78); Albumin, Blood 3.8 g/dL (3.4-5.0); Albumin/Globulin Ratio 1.2 (0.8-1.8); Alk Phos 138 U/L (50-136); Anion Gap 6 mmol/L (6-16); Aspartate Aminotrans (AST/SGOT 14 U/L (12-37); Bilirubin, Total 0.3 mg/dL (0.1-1.0); Blood Urea Nitrogen 15 mg/dL (8-24); CHOL/HDL RATIO 3.5; CO2, Blood 27 mmol/L (21-32); Calcium, Blood 9.4 mg/dL (8.5-10.1); Chloride, Blood 104 mmol/L (98-108); Cholesterol 198 mg/dL (50-200); Globulin, Blood 3.2 g/dL (2.2-4.0); Glucose, Blood 117 mg/dL (70-99); HDL Cholesterol 57 mg/dL (>39); LDL/HDL RATIO 1.8; Low Density Lipoprotein Chol 105 mg/dL (0-110); Potassium, Blood 4.6 mmol/L (3.5-5.5); Sodium, Blood 137 mmol/L (136-145); Triglycerides 181 mg/dL (30-160); Very Low Density Lipoprot Chol 36 mg/dL (6-32)
[2023-02-10 17:23] LABS: Bun/Creatinine Ratio 17.9 (12.0-20.0); Creatinine, Blood 0.84 mg/dL (0.40-1.00); Glomerular Filtration Rate 76 (60-)
== END | disposition home or self-care (01) ==
LOC: LAB SHORT 10:30 → LAB 10:30
PROVIDERS: Internal Medicine
DX: E78.2 Mixed hyperlipidemia (principal)
CPT/HCPCS: 80053; 80061

== ENCOUNTER 2023-07-31 20:26 | Inpatient (IN) | payer OTHER ==
[~2023-07-31] VITALS: Ht 149.9 cm; Wt 54.4 kg
[~2023-07-31 20:26] MED LIST changes: -ATOR40TA PO; +ATOR80 PO
[2023-07-31] MEDS ORDERED: Ondansetron HCl 2 MG / ML 2ML Vial IV ONE (20:35)
[2023-07-31 20:50] LABS: BASOPHILS ABSOLUTE AUTO 0.04 K/mm3 (0.00-0.23); BASOPHILS PERCENT AUTO 0 % (0-2); EOSINOPHILS ABSOLUTE AUTO 0.02 K/mm3 (0.00-0.68); EOSINOPHILS PERCENT AUTO 0 % (0-6); Hematocrit 38.8 % (33.0-51.0); Hemoglobin 13.5 g/dL (11.5-16.0); IMMATURE GRAN ABSOLUTE AUTO 0.06 K/mm3 (0.00-0.10); IMMATURE GRAN PERCENT AUTO 1 % (0-1); LYMPHOCYTES ABSOLUTE AUTO 1.33 K/mm3 (0.84-5.20); LYMPHOCYTES PERCENT AUTO 13 % (21-46); MONOCYTES ABSOLUTE AUTO 0.32 K/mm3 (0.16-1.47); MONOCYTES PERCENT AUTO 3 % (4-13); Mean Corpuscular HGB Conc 34.8 g/dL (31.5-36.5); Mean Corpuscular Volume 89 fL (80-100); Mean Platelet Volume 10.7 fL (9.1-12.4); NEUTROPHILS ABSOLUTE AUTO 8.22 K/mm3 (1.96-9.15); NEUTROPHILS PERCENT AUTO 82 % (41-73); Platelet Count 286 K/mm3 (150-400); RDW Coefficient Variation 12.4 % (11.7-14.2); Red Blood Cell Count 4.35 M/mm3 (3.80-5.20); White Blood Cell Count 9.99 K/mm3 (4.00-11.30)
[2023-07-31 21:09] LABS: Albumin, Blood 3.4 g/dL (3.4-5.0); Albumin/Globulin Ratio 0.8 (0.8-1.8); Bilirubin, Total 0.4 mg/dL (0.1-1.0); Bun/Creatinine Ratio 21.6 (12.0-20.0); Calcium, Blood 9.8 mg/dL (8.5-10.1); Creatinine, Blood 0.69 mg/dL (0.40-1.00); Globulin, Blood 4.3 g/dL (2.2-4.0); Potassium, Blood 3.3 mmol/L (3.5-5.5); Total Protein, Blood 7.7 g/dL (6.4-8.2)
[2023-07-31] MEDS ORDERED: Droperidol 5 mg/2 ml Vial IV ONE (23:05)
[2023-07-31] MEDS ORDERED: NS 1,000 ML IV SCH (23:05)
[2023-08-01] MEDS ORDERED: Metoclopramide HCl 5MG / ML 2ML Vial IV ONE (01:05)
[2023-08-01] MEDS ORDERED: DiphenhydrAMINE HCl 50 MG/ML 1ML Vial IV ONE (01:05)
[2023-08-01] MEDS ORDERED: NS 1,000 ML IV SCH (02:50)
[2023-08-01] MEDS ORDERED: Prochlorperazine Edisylate 10 mg Vial IV ONE (02:50)
[2023-08-01 03:44] LABS: Source, Urine Clean Catch
[2023-08-01 03:50] LABS: Bilirubin, Urine Neg (Neg); Blood, Urine 1+ (Neg); Glucose Qualitative, Urine Neg (Neg); Ketones, Urine Neg (Neg); Leukocyte Esterase, Urine Neg (Neg); Nitrite, Urine Neg (Neg); Protein, Urine Neg (Neg); Urobilinogen, Urine NORM (Normal)
[2023-08-01] MEDS ORDERED: Ondansetron HCl 2 MG / ML 2ML Vial IV PRN (03:55)
[2023-08-01] MEDS ORDERED: Metoclopramide HCl 5MG / ML 2ML Vial IV PRN (03:55)
[2023-08-01 03:59] LABS: Influenza A, PCR NEGATIVE (NEGATIVE); Influenza B, PCR NEGATIVE (NEGATIVE); Resp Syncytial Virus, PCR NEGATIVE (NEGATIVE); SARS-Cov-2 (COVID-19) PCR, MMC NEGATIVE (NEGATIVE)
[2023-08-01] MEDS ORDERED: HydrALAZINE HCl 20 MG / ML 1ML Vial IV PRN (04:00)
[2023-08-01 04:02] LABS: Appearance, Urine Clear (Clear); Color, Urine Yellow (P-Yellow)
[2023-08-01 04:03] LABS: Bacteria Not Seen /hpf; Red Blood Cells, Urine 0-2 /hpf (0-2); Squamous Epithelial Cells Rare /hpf (Few); White Blood Cells, Urine Not Seen /hpf (0-5)
[2023-08-01 04:42] VITALS: BP 183/88
[2023-08-01] MEDS ORDERED: PRAZ5 PO (05:46)
[2023-08-01] MEDS ORDERED: CILO100 PO (05:46)
[2023-08-01] MEDS ORDERED: STIOLTO RESPIMAT4 G1 INH (05:49)
[2023-08-01] MEDS ORDERED: CELEXA40 M9 PO (05:51)
[2023-08-01 06:04] LABS: BASOPHILS ABSOLUTE AUTO 0.03 K/mm3 (0.00-0.23); BASOPHILS PERCENT AUTO 0 % (0-2); EOSINOPHILS PERCENT AUTO 0 % (0-6); IMMATURE GRAN ABSOLUTE AUTO 0.09 K/mm3 (0.00-0.10); IMMATURE GRAN PERCENT AUTO 1 % (0-1); LYMPHOCYTES ABSOLUTE AUTO 0.91 K/mm3 (0.84-5.20); LYMPHOCYTES PERCENT AUTO 9 % (21-46); MONOCYTES ABSOLUTE AUTO 0.16 K/mm3 (0.16-1.47); MONOCYTES PERCENT AUTO 2 % (4-13); Mean Corpuscular HGB 30.5 pg (26.0-34.0); Mean Corpuscular HGB Conc 34.2 g/dL (31.5-36.5); Mean Corpuscular Volume 89 fL (80-100); Mean Platelet Volume 11.1 fL (9.1-12.4); NEUTROPHILS ABSOLUTE AUTO 8.87 K/mm3 (1.96-9.15); NEUTROPHILS PERCENT AUTO 88 % (41-73); Platelet Count 181 K/mm3 (150-400); RDW Coefficient Variation 12.4 % (11.7-14.2); RDW Standard Deviation 40.5 fL (35.1-46.3); Red Blood Cell Count 4.26 M/mm3 (3.80-5.20); White Blood Cell Count 10.06 K/mm3 (4.00-11.30)
[2023-08-01] MEDS ORDERED: Potassium Chloride 40 MEQ in NS 250 ML IV ONE (06:15)
[2023-08-01] MEDS ORDERED: NS 500 ML IV ONE (06:26)
[2023-08-01 06:45] LABS: Albumin, Blood 3.6 g/dL (3.4-5.0); Albumin/Globulin Ratio 0.9 (0.8-1.8); Bilirubin, Total 0.4 mg/dL (0.1-1.0); Bun/Creatinine Ratio 15.1 (12.0-20.0); Calcium, Blood 8.8 mg/dL (8.5-10.1); Creatinine, Blood 0.53 mg/dL (0.40-1.00); Globulin, Blood 4.2 g/dL (2.2-4.0); Magnesium, Blood 1.9 mg/dL (1.6-2.4); Potassium, Blood 3.1 mmol/L (3.5-5.5); Total Protein, Blood 7.8 g/dL (6.4-8.2)
--- NOTE | 2023-08-01 06:51 | NUR ---
08/01/23: PATIENT FULLY ORIENTED; COOPERATIVE. INTRACTABLE NAUSEA AND NON-BLOODY EMESIS; ZOFRAN IS NOT VERY EFFECTIVE. HYPERTENSIVE. PATIENT WALKING AROUND ROOM AND MOVING A LOT. POTASSIUM OF 3.3; POTASSIUM IV DRIP PIGGYBACK ON NS 500ML STARTED.
[2023-08-01 07:40] VITALS: BP 161/84
[2023-08-01] MEDS ORDERED: Aspirin 81 MG Chew PO SCH (09:00)
[2023-08-01] MEDS ORDERED: Clopidogrel Bisulfate 75 MG Tab PO SCH (09:00)
[2023-08-01] MEDS ORDERED: Enoxaparin 40 MG/0.4 ML SYR SC SCH (09:00)
[2023-08-01] MEDS ORDERED: Losartan Potassium 50 MG Tab PO SCH (09:00)
[2023-08-01 10:13] LABS: U Amphetamine Screen Not Detected; U Barbituate Screen Not Detected; U Benzodiazapine Screen Not Detected; U Buprenorphine Screen Not Detected; U Cannabinoids Screen DETECTED; U Cocaine Screen Not Detected; U Methadone Screen Not Detected; U Methamphetamine Screen Not Detected; U Opiates Screen Not Detected; U Oxycodone Screen Not Detected; U Phencyclidine Screen Not Detected
[2023-08-01] MEDS ORDERED: Prochlorperazine Edisylate 10 mg Vial IV PRN (10:20)
[2023-08-01] MEDS ORDERED: NS 500 ML IV SCH (13:20)
[2023-08-01 15:24] VITALS: BP 173/94
--- NOTE | 2023-08-01 17:49 | NUR ---
SHIFT SUMMARY PT ADMITTED FOR N/V AND TREATED PER EMR. PT NAUSEOUS FOR MOST OF THE DAY DESPITE MEDICATION. PT TRIED ZOFRAN AND REGLAN WITH NO EFFECT. COMPAZINE SEEMS TO BE HELPING. DESPITE BEING NAUSEOUS SHE HAS NOT HAD MUCH VOMITTING. PT ABLE TO GET UP AND AMBULATE IN THE HALLS AND IS RESTING COMFORTABLY IN BED WITH CALL LIGHT IN REACH. TOLERATING SIPS OF WATER BUT NOT ABLE TO TOLERATE FOOD AT THIS TIME.
[2023-08-01] MEDS ORDERED: Potassium Chloride 40 MEQ in NS 250 ML IV STA (18:07)
[2023-08-01 20:36] VITALS: BP 174/88
[2023-08-01] MEDS ORDERED: QUEtiapine Fumarate 100 MG Tab PO SCH (21:00)
[2023-08-02] MEDS ORDERED: Metoclopramide HCl 5MG / ML 2ML Vial IV PRN (02:10)
[2023-08-02 04:26] VITALS: BP 190/90
[2023-08-02 05:24] LABS: Hematocrit 42.4 % (33.0-51.0); Hemoglobin 14.8 g/dL (11.5-16.0); Mean Corpuscular HGB 30.7 pg (26.0-34.0); Mean Corpuscular HGB Conc 34.9 g/dL (31.5-36.5); Mean Corpuscular Volume 88 fL (80-100); Mean Platelet Volume 10.7 fL (9.1-12.4); Platelet Count 364 K/mm3 (150-400); RDW Coefficient Variation 12.6 % (11.7-14.2); RDW Standard Deviation 40.9 fL (35.1-46.3); Red Blood Cell Count 4.82 M/mm3 (3.80-5.20); White Blood Cell Count 18.09 K/mm3 (4.00-11.30)
[2023-08-02 05:58] LABS: Anion Gap 12 mmol/L (3-11); Blood Urea Nitrogen 9 mg/dL (8-24); Bun/Creatinine Ratio 15.3 (12.0-20.0); CO2, Blood 21 mmol/L (21-32); Calcium, Blood 9.6 mg/dL (8.5-10.1); Chloride, Blood 103 mmol/L (98-108); Creatinine, Blood 0.59 mg/dL (0.40-1.00); Glomerular Filtration Rate 99 (60-); Glucose, Blood 143 mg/dL (70-99); Magnesium, Blood 1.9 mg/dL (1.6-2.4); Phosphorus, Blood 2.1 mg/dL (2.5-4.9); Potassium, Blood 3.3 mmol/L (3.5-5.5); Sodium, Blood 133 mmol/L (136-145)
--- NOTE | 2023-08-02 06:13 | NUR ---
08/02/23: PATIENT AAOX4, ANXIOUS, TALKATIVE, RESTLESS. PATIENT COMPLAINTS OF INTRACTABLE NAUSEA; INTERMITTENT SIPS OF WATER INTAKE OVER NIGHT. ELEVATED BLOOD PRESSURE IN THE 180S-190S SYS. DR. SAGE NOTIFIED: RECOMMENDS CURRENT HYDRALAZINE IV PRN PRESCRIPTION AND CHANGE TO REGLAN IV PRN TO CONTROL NAUSEA.
[2023-08-02 07:29] VITALS: BP 137/74
[2023-08-02] MEDS ORDERED: Potassium Chloride 40 MEQ in NS 250 ML IV ONE (10:00)
[2023-08-02 15:27] VITALS: BP 192/89
[2023-08-02 15:37] VITALS: BP 186/82
[2023-08-02] MEDS ORDERED: Losartan Potassium 25 MG Tab PO SCH (16:15)
--- NOTE | 2023-08-02 17:05 | NUR ---
SHIFT SUMMARY A&OX4, COOPERATIVE WITH CARE, INDEPENDENT. DENIED CP/PRESSURE, HEADACHE, DIZZINESS, OR SOB. COMPLAINED OF NAUSEA ALL SHIFT. RELIEVED SLIGHTLY WITH REGLAN PER HER REPORT. PATIENT REPORTS THAT SHE HAS NOT HAD ANY EMESIS BESIDES "A LITTLE BILE." SBP ELEVATED THIS AFTERNOON. ADMINISTERED HYDRALAZINE. LOSARTAN CHANGED TO BID PER ORDERS. PATIENT CURRENTLY WALKING AROUND IN THE [place]. CALLS APPROPRIATELY.
[2023-08-02 19:16] VITALS: BP 124/102
[2023-08-02] MEDS ORDERED: QUEtiapine Fumarate 200 MG Tab PO SCH (21:00)
[2023-08-02 21:01] VITALS: BP 123/78
[2023-08-03 03:12] VITALS: BP 117/74
--- NOTE | 2023-08-03 05:23 | NUR ---
SHIFT SUMMARY PT C/O NAUSEA X1, INSOMNIA, AND NEW ONSET RASH ON R THIGH AND BLE'S. PT MEDICATED PER EMAR W/ COMPAZINE AND SEROQUIL. REGLAN D/C DUE TO INTERACTION REACTION POTENTIAL W/ SEROQUIL. NO OTHER ACUTE CHANGES THIS SHIFT. CALL LIGHT WITHIN REACH AND PT ABLE TO MAKE NEEDS KNOWN.
[2023-08-03 07:08] VITALS: BP 146/70
[2023-08-03 08:42] LABS: BASOPHILS ABSOLUTE AUTO 0.02 K/mm3 (0.00-0.23); BASOPHILS PERCENT AUTO 0 % (0-2); EOSINOPHILS ABSOLUTE AUTO 0.01 K/mm3 (0.00-0.68); EOSINOPHILS PERCENT AUTO 0 % (0-6); Hematocrit 40.4 % (33.0-51.0); Hemoglobin 13.8 g/dL (11.5-16.0); IMMATURE GRAN ABSOLUTE AUTO 0.04 K/mm3 (0.00-0.10); IMMATURE GRAN PERCENT AUTO 1 % (0-1); LYMPHOCYTES ABSOLUTE AUTO 1.99 K/mm3 (0.84-5.20); LYMPHOCYTES PERCENT AUTO 23 % (21-46); MONOCYTES ABSOLUTE AUTO 1.06 K/mm3 (0.16-1.47); MONOCYTES PERCENT AUTO 12 % (4-13); Mean Corpuscular HGB 30.6 pg (26.0-34.0); Mean Corpuscular HGB Conc 34.2 g/dL (31.5-36.5); Mean Corpuscular Volume 90 fL (80-100); Mean Platelet Volume 10.4 fL (9.1-12.4); NEUTROPHILS ABSOLUTE AUTO 5.49 K/mm3 (1.96-9.15); NEUTROPHILS PERCENT AUTO 64 % (41-73); Platelet Count 278 K/mm3 (150-400); RDW Standard Deviation 42.5 fL (35.1-46.3); Red Blood Cell Count 4.51 M/mm3 (3.80-5.20); White Blood Cell Count 8.61 K/mm3 (4.00-11.30)
[2023-08-03 09:14] LABS: Bun/Creatinine Ratio 20.5 (12.0-20.0); Calcium, Blood 8.7 mg/dL (8.5-10.1); Creatinine, Blood 0.78 mg/dL (0.40-1.00); Potassium, Blood 3.5 mmol/L (3.5-5.5)
[2023-08-03] MEDS ORDERED: LOSA50 PO (13:20)
[2023-08-03] MEDS ORDERED: CLOP75 PO (13:20)
[2023-08-03] MEDS ORDERED: PROM25 PO (13:21)
--- NOTE | 2023-08-03 14:37 | NUR ---
DISCHARGE A&OX4, COOPERATIVE, INDEPENDENT. DENIED CP/PRESSURE, HEADACHE, DIZZINESS, OR SOB. FLUID INTAKE GOOD. PATIENT WAS ABLE TO TOLERATE CRACKERS AND JELLO. IV REMOVED. DISCHARGE PACKET REVIEWED WITH PATIENT. NO QUESTIONS OR CONCERNS. PATIENT ESCORTED OUT BY FOOT FOR DISCHARGE AT 1443.
== END 2023-08-03 14:43 | disposition home or self-care (01) | DRG 392 ==
LOC: ER 20:26 → MEDS 20:27 → ENPENDDIS 08-03 13:06 → MEDS 08-03 14:43
PROVIDERS: Emergency Medicine; Internal Medicine; Student in an Organized Health Care Education/Training Program; ADMIT Student in an Organized Health Care Education/Training Program
DX: R11.2 Nausea with vomiting, unspecified (principal); I73.9 Peripheral vascular disease, unspecified; I10 Essential (primary) hypertension; E78.5 Hyperlipidemia, unspecified; J44.9 Chronic obstructive pulmonary disease, unspecified; E87.6 Hypokalemia; F32.A Depression, unspecified; F41.9 Anxiety disorder, unspecified; Z87.891 Personal history of nicotine dependence; Z95.828 Presence of other vascular implants and grafts; Z90.49 Acquired absence of other specified parts of digestive tract; Z90.89 Acquired absence of other organs; Z88.6 Allergy status to analgesic agent; Z88.8 Allergy status to other drugs, medicaments and biological substances; Z79.02 Long term (current) use of antithrombotics/antiplatelets; Z79.82 Long term (current) use of aspirin; Z79.899 Other long term (current) drug therapy
CPT/HCPCS: 0241U; 36415; 74177; 80048; 80053; 80069; 81001; 83690; 83735; 84132; 85025; 85027; 93005; 93010; 96361; 96365; 96366; 96374-59; 96375; 96376; 99285-25; A9270; G0378; J0360; J0780; J1200; J1650; J1790; J2405; J2765; J3480; J7030; J7040; J7050; Q9967

== ENCOUNTER → 2025-01-11 | Outpatient (CLI) | payer MEDICARE ==
[~2025-01-11] MED LIST changes: +CELEXA40 M9 PO; +CILO100 PO; +PRAZ5 PO; +STIOLTO RESPIMAT4 G1 INH
[2025-01-11 19:32] LABS: Hematocrit 43.5 % (33.0-51.0); Hemoglobin 14.5 g/dL (11.5-16.0); Mean Corpuscular HGB Conc 33.3 g/dL (31.5-36.5); Mean Corpuscular Volume 92 fL (80-100); NRBC ABSOLUTE 0.00 K/mm3 (0.00-0.02); NRBC Auto 0.0 /100 WBC (0.0-0.2); Platelet Count 243 K/mm3 (150-400); RDW Coefficient Variation 12.8 % (11.7-14.2); RDW Standard Deviation 43.8 fL (35.1-46.3)
[2025-01-11 20:08] LABS: Alanine Aminotransfer (ALT/SGP 24 U/L (12-78); Albumin, Blood 3.6 g/dL (3.4-5.0); Albumin/Globulin Ratio 1.0 (0.8-1.8); Anion Gap 7 mmol/L (3-11); Aspartate Aminotrans (AST/SGOT 14 U/L (12-37); Bilirubin, Total 0.4 mg/dL (0.1-1.0); Blood Urea Nitrogen 15 mg/dL (8-24); CHOL/HDL RATIO 3.4; CO2, Blood 25 mmol/L (21-32); Calcium, Blood 9.1 mg/dL (8.5-10.1); Chloride, Blood 110 mmol/L (98-108); Cholesterol 185 mg/dL (50-200); Creatinine, Blood 0.68 mg/dL (0.40-1.00); Globulin, Blood 3.7 g/dL (2.2-4.0); Glucose, Blood 117 mg/dL (70-99); HDL Cholesterol 54 mg/dL (>39); LDL/HDL RATIO 1.8; Low Density Lipoprotein Chol 97 mg/dL (0-110); Potassium, Blood 4.1 mmol/L (3.5-5.5); Sodium, Blood 138 mmol/L (136-145); Thyroid Stimulating Hormone 2.140 uIU/mL (0.360-4.800); Total Protein, Blood 7.3 g/dL (6.4-8.2); Triglycerides 169 mg/dL (30-160); Very Low Density Lipoprot Chol 33 mg/dL (6-32)
== END ==
LOC: LAB SHORT 17:29 → LAB 17:29
PROVIDERS: Internal Medicine
DX: R07.9 Chest pain, unspecified (principal); E78.2 Mixed hyperlipidemia
CPT/HCPCS: 80053; 80061; 84443; 85027